=== PATIENT | female | born 1970 | race Caucasian/White ===

== ENCOUNTER 2016-06-02 12:11 | Emergency (ER) | payer MEDICAID ==
[~2016-06-02] VITALS: Ht 170.1 cm; Wt 63.5 kg
[~2016-06-02 12:11] MED LIST: AMOXICILLIN500 MG PO; ARICEPT5 MG PO; COMPAZINE10 MG PO; CYMBALTA60 MG PO; EXELON9.5 MG/24 TD; FIORICET 325 MG1 TAB PO; FLUVOXAMINE MA100 M2 PO; FLUVOXAMINE50 MG PO; Fioricet 325 MG1 TAB PO; Fiorinal,Butalb1 TAB PO; GEODON60 MG PO; IBUPROFEN600 MG PO; LAMICTAL100 MG PO; LAMICTAL25 MG PO; LORAZEPAM1 MG PO; Lopressor25 MG PO; NEURONTIN300 MG PO; NEURONTIN400 MG PO; QUETIAPINE FUMA25 MG PO; REMERON30 MG PO; SEROQUEL100 MG PO; TYLENOL325 M1 PO; ULTRAM50 MG PO; VALIUM10 MG; VICODIN 5/500 505 MG PO; VICODIN 500 MG-1 TAB PO; VITAMIN D50000 I3 PO; WELLBUTRIN75 MG PO; XANAX0.25 MG PO
[2016-06-02] MEDS ORDERED: VITAMIN D50000 UNIT PO (12:24)
[2016-06-02 12:27] VITALS: BP 139/88
== END 2016-06-02 13:47 | disposition home or self-care (01) ==
LOC: ED 12:11
DX: M79.662 Pain in left lower leg (principal); R03.0 Elevated blood-pressure reading, without diagnosis of hypertension; F17.200 Nicotine dependence, unspecified, uncomplicated; Z88.6 Allergy status to analgesic agent; Z79.899 Other long term (current) drug therapy

== ENCOUNTER 2016-08-25 11:50 | Emergency (ER) | payer MEDICAID ==
[~2016-08-25] VITALS: Ht 165.1 cm; Wt 54.4 kg
--- NOTE | ~2016-08-25 | EKG ---
[place], [place] ELECTROCARDIOGRAM REPORT NAME: BRET BENZ UNIT #: [id number] ROOM: DOCTOR: ELLIE MAE MD BIRTHDATE: [birth year] DOS: 08/25/2016 TIME: 12:51. Sinus rhythm, normal electrocardiogram. ELLIE MAE MD CM:EKGRPT:ELECTROCARDIOGRAM REPORT [id number] 1159 ELLIE MAE MD
[~2016-08-25 11:50] MED LIST changes: +VITAMIN D50000 UNIT PO
[2016-08-25 12:07] VITALS: BP 160/100
[2016-08-25 12:44] LABS: BASO # 0.1 10*3/uL (0.0-0.1); EOS # 0.3 10*3/uL (0.0-0.4); EOS % 3.1 % (1.0-4.0); HEMATOCRIT 42.2 % (37.0-47.0); HEMOGLOBIN 14.3 g/dl (12.0-16.0); LYMPH # 2.4 10*3/uL (1.3-4.4); LYMPH % 26.9 % (27.0-41.0); MEAN CELL VOLUME 94.6 fl (81.0-99.0); MEAN CORPUSCULAR HGB 32.1 pg (27.0-31.0); MEAN CORPUSCULAR HGB CONC 33.9 g/dl (33.0-37.0); MONO # 0.5 10*3/uL (0.1-1.0); MONO % 5.6 % (3.0-9.0); NEUT # 5.7 10*3/uL (2.3-7.9); NEUT % 63.1 % (47.0-73.0); PLATELET COUNT AUTOMATED 171 10*3/uL (130-400); RED BLOOD COUNT 4.46 10*6/uL (4.10-5.10); RED CELL DISTRI WIDTH 13.6 % (0-14.5); WHITE BLOOD COUNT 9.1 10*3/uL (4.8-10.8)
[2016-08-25 12:56] LABS: URINE AMPHETAMINES < 1000 (1000ng/ml); URINE BARBITURATES < 200 (200ng/ml); URINE COCAINE > 300 (300ng/ml)
[2016-08-25 13:05] LABS: ALBUMIN 3.6 gm/dl (3.1-4.5); BILIRUBIN, TOTAL 0.3 mg/dl (0.2-1.0); BUN 18 mg/dl (7-24); CARBON DIOXIDE 28 mmol/L (21-32); CHLORIDE 105 mmol/L (98-107); EST GLOM FILT AFRICAN AMERICAN > 60 ml/min; GLUCOSE 91 mg/dL (65-99); POTASSIUM 4.2 mmol/L (3.5-5.1); SGOT/AST 22 IU/L (3-35); SGPT/ALT 20 U/L (12-78); SODIUM 141 mmol/L (136-145); TOTAL PROTEIN 7.4 gm/dL (6.4-8.2)
[2016-08-25 13:08] LABS: ALKALINE PHOSPHATASE 68 U/L (45-117); B-hCG (QUALITATIVE) BORDERLINE (NEGATIVE); TROPONIN I < 0.015 ng/ml (<0.045)
[2016-08-26 04:54] LABS: BILIRUBIN NEGATIVE (NEGATIVE); BLOOD NEGATIVE (NEGATIVE); CLARITY SL CLOUDY (CLEAR); COLOR YELLOW (YELLOW); GLUCOSE NEGATIVE (NEGATIVE); KETONE NEGATIVE (NEGATIVE); LEUKO ESTERASE NEGATIVE (NEGATIVE); NITRITE NEGATIVE (NEGATIVE); PH 6.5 (5.0-9.0); PROTEIN NEGATIVE (NEGATIVE); UROBILINOGEN 0.2 E.U./dl (0.2-1.0)
[2016-08-26 05:03] LABS: BACTERIA 2+; CALCIUM OXALATE CRYSTALS 1+; URINE REFLEX COMMENT YES (NO)
== END 2016-08-25 16:22 | disposition home or self-care (01) ==
LOC: ED 11:50
PROVIDERS: Family Medicine Adult Medicine
DX: F32.2 Major depressive disorder, single episode, severe without psychotic features (principal); F17.200 Nicotine dependence, unspecified, uncomplicated; Z88.6 Allergy status to analgesic agent; Z79.899 Other long term (current) drug therapy

== ENCOUNTER 2017-01-11 13:26 | Emergency (ER) | payer MEDICAID ==
[~2017-01-11] VITALS: Ht 172.7 cm; Wt 65.8 kg
[2017-01-11 13:31] VITALS: BP 152/100
[2017-01-11 13:55] LABS: BILIRUBIN NEGATIVE (NEGATIVE); BLOOD TRACE-INTACT (NEGATIVE); CLARITY SL CLOUDY (CLEAR); COLOR YELLOW (YELLOW); GLUCOSE NEGATIVE (NEGATIVE); KETONE NEGATIVE (NEGATIVE); LEUKO ESTERASE NEGATIVE (NEGATIVE); NITRITE NEGATIVE (NEGATIVE); PROTEIN TRACE (NEGATIVE); SPECIFIC GRAVITY >= 1.030 (1.005-1.030); UROBILINOGEN 0.2 E.U./dl (0.2-1.0)
[2017-01-11 14:04] LABS: BACTERIA 2+; RBC 0-2 rbc/hpf (0-2); URINE REFLEX COMMENT YES (NO)
[2017-01-11 14:41] LABS: BASO # 0.1 10*3/uL (0.0-0.1); BASO % 0.9 % (0.0-1.0); EOS # 0.2 10*3/uL (0.0-0.4); HEMATOCRIT 47.4 % (37.0-47.0); HEMOGLOBIN 15.9 g/dl (12.0-16.0); LYMPH # 2.4 10*3/uL (1.3-4.4); LYMPH % 23.6 % (27.0-41.0); MEAN CELL VOLUME 96.7 fl (81.0-99.0); MEAN CORPUSCULAR HGB 32.4 pg (27.0-31.0); MEAN CORPUSCULAR HGB CONC 33.5 g/dl (33.0-37.0); MEAN PLATELET VOLUME 11.1 fl (9.6-12.3); MONO # 0.7 10*3/uL (0.1-1.0); NEUT # 6.7 10*3/uL (2.3-7.9); NEUT % 66.2 % (47.0-73.0); PLATELET COUNT AUTOMATED 227 10*3/uL (130-400); RED CELL DISTRI WIDTH 13.1 % (0-14.5); WHITE BLOOD COUNT 10.1 10*3/uL (4.8-10.8)
[2017-01-11 14:56] LABS: ALBUMIN 3.8 gm/dl (3.1-4.5); ALKALINE PHOSPHATASE 72 U/L (45-117); BILIRUBIN, TOTAL 0.5 mg/dl (0.2-1.0); BUN 19 mg/dl (7-24); C-REACTIVE PROTEIN 0.45 MG/DL (0-0.3); CARBON DIOXIDE 21 mmol/L (21-32); CHLORIDE 105 mmol/L (98-107); EST GLOM FILT AFRICAN AMERICAN > 60 ml/min; GLUCOSE 122 mg/dL (65-99); MAGNESIUM 1.9 mg/dL (1.5-2.1); SGOT/AST 26 IU/L (3-35); SGPT/ALT 18 U/L (12-78); SODIUM 135 mmol/L (136-145); TOTAL PROTEIN 8.3 gm/dL (6.4-8.2)
[2017-01-11] MEDS ORDERED: PYRIDIUM200 M1 PO (19:34)
[2017-01-11] MEDS ORDERED: MACROBID100 M1 PO (19:34)
== END 2017-01-11 21:37 | disposition home or self-care (01) ==
LOC: ED 13:26
PROVIDERS: Emergency Medicine
DX: N39.0 Urinary tract infection, site not specified (principal); R31.9 Hematuria, unspecified; F17.200 Nicotine dependence, unspecified, uncomplicated; Z98.890 Other specified postprocedural states; Z79.899 Other long term (current) drug therapy; Z88.6 Allergy status to analgesic agent

== ENCOUNTER → 2017-01-12 | Emergency (ER) | payer MEDICAID ==
[~2017-01-12] VITALS: Wt 67.1 kg
[~2017-01-12] MED LIST changes: +MACROBID100 M1 PO; +PYRIDIUM200 M1 PO
[2017-01-12 11:27] VITALS: BP 142/80
== END ==
LOC: ED 11:11
DX: N39.0 Urinary tract infection, site not specified (principal); F32.9 Major depressive disorder, single episode, unspecified; F17.200 Nicotine dependence, unspecified, uncomplicated; Z98.890 Other specified postprocedural states; Z79.899 Other long term (current) drug therapy; Z88.6 Allergy status to analgesic agent

== ENCOUNTER 2017-01-21 12:49 | Inpatient (IN) | payer MEDICAID ==
[~2017-01-21] VITALS: Ht 170.1 cm; Wt 67.1 kg
--- NOTE | ~2017-01-21 | CON ---
[place], [place] REPORT OF CONSULTATION NAME: BRET BENZ UNIT #: [id number] ROOM: 520 DOCTOR: SONAL NJ MD BIRTHDATE: [birth year] DOS: 01/23/2017 PSYCHIATRIC CONSULTATION CHIEF COMPLAINT: "I'm just so depressed, I can't go on like this." HISTORY OF PRESENT ILLNESS: This is a 46-year-old white female with a lengthy history of bipolar type 1, who has been off of her psychiatric medicines for over a year. She initially presented to [facility] with multiple physical complaints that included urinary frequency, dysuria, chest pain and black tarry stools. She also endorses an 8 pound weight loss that is unintentional over the last 3 weeks. From a psychiatric standpoint, the patient reports that she has been off of her psych meds for sometime and has been battling depression as well as mood swings for the last several months. She endorses poor sleep with difficulty falling asleep, sleep continuity disturbance, director of business development awakening, anergia, anhedonia, hopeless, helpless feelings, crying spells, and inability to cope. The mood swings are persistent as well and she finds herself being increasingly irritable and short fused with people. She denies suicidal thoughts, homicidal thoughts or any self-injurious thoughts. PAST MEDICAL HISTORY: Significant for a long history of bipolar disorder, also history of GERD and vitamin D deficiency. MENTAL STATUS EXAMINATION: This morning, the patient is alert and oriented to person, place and time. Mood does seem to be very down and depressed. Affect is flat and blunted with a constricted range. While endorsing mood lability, I saw none. There is no hypomania or cheri noted at this point. There are no auditory or visual hallucinations. No delusions. No paranoia. Short, intermediate and long-term memory were fully intact. DIAGNOSIS: Bipolar type 1, depressed type. PLAN: I will go ahead and start her on Latuda 40 mg at bedtime and increase this as tolerated and as needed. I will avoid starting her on an antidepressant at this point. Utilizing rather a mood stabilizer, which should be strong enough to bring her out of the depression, while also preventing her from cycling into cheri. Would suggest she follow up at [facility] for both counseling and medication management services. [place], [place] REPORT OF CONSULTATION NAME: BRET BENZ Kimmy UNIT #: [id number] ROOM: 520 DOCTOR: SONAL NJ MD BIRTHDATE: [birth year] SONAL NJ MD CM:CONSTR:REPORT OF CONSULTATION 0908 01/23/17 1054 interface
[2017-01-21 12:52] VITALS: BP 112/91
[2017-01-21 13:25] LABS: BILIRUBIN 1+ (NEGATIVE); BLOOD 1+ (NEGATIVE); CLARITY CLOUDY (CLEAR); COLOR YELLOW (YELLOW); GLUCOSE NEGATIVE (NEGATIVE); KETONE TRACE (NEGATIVE); NITRITE NEGATIVE (NEGATIVE); SPECIFIC GRAVITY >= 1.030 (1.005-1.030); UROBILINOGEN 0.2 E.U./dl (0.2-1.0)
[2017-01-21 13:40] LABS: LEUKO ESTERASE 2+ (NEGATIVE)
[2017-01-21 13:42] LABS: BACTERIA 2+; EPITHELIAL CELLS 30-40
[2017-01-21 14:26] LABS: BASO # 0.1 10*3/uL (0.0-0.1); BASO % 0.8 % (0.0-1.0); EOS # 0.2 10*3/uL (0.0-0.4); EOS % 1.7 % (1.0-4.0); HEMOGLOBIN 15.4 g/dl (12.0-16.0); LYMPH # 2.3 10*3/uL (1.3-4.4); LYMPH % 23.4 % (27.0-41.0); MEAN CELL VOLUME 97.3 fl (81.0-99.0); MEAN CORPUSCULAR HGB 32.6 pg (27.0-31.0); MEAN CORPUSCULAR HGB CONC 33.5 g/dl (33.0-37.0); MEAN PLATELET VOLUME 11.9 fl (9.6-12.3); MONO # 0.5 10*3/uL (0.1-1.0); MONO % 5.6 % (3.0-9.0); NEUT # 6.6 10*3/uL (2.3-7.9); NEUT % 68.2 % (47.0-73.0); PLATELET COUNT AUTOMATED 195 10*3/uL (130-400); RED BLOOD COUNT 4.73 10*6/uL (4.10-5.10); RED CELL DISTRI WIDTH 12.6 % (0-14.5); WHITE BLOOD COUNT 9.7 10*3/uL (4.8-10.8)
[2017-01-21 14:42] LABS: ALBUMIN 3.7 gm/dl (3.1-4.5); ALKALINE PHOSPHATASE 66 U/L (45-117); BUN 19 mg/dl (7-24); CHLORIDE 106 mmol/L (98-107); CREATININE 0.93 mg/dL (0.55-1.02); POTASSIUM 4.3 mmol/L (3.5-5.1); SGOT/AST 14 IU/L (3-35); SGPT/ALT 15 U/L (12-78); SODIUM 139 mmol/L (136-145); TOTAL PROTEIN 7.5 gm/dL (6.4-8.2)
--- NOTE | 2017-01-21 15:09 | NUR ---
CALLED [facility] AND SPOKE TO PHARMACIST LORRAINE. HE STATES PT HAD ALL SCRIPTS TRANSFERRED OUT TO "[facility]" IN 2016. I CALLED AND THAT PHARMACY IS CLOSED AT THIS TIME. DR UMESH DOUGLAS NOTIFIED. NO NEW ORDERS
--- NOTE | 2017-01-21 15:22 | NUR ---
IV NOT PATENT AT THIS TIME, REMOVED. MICHELLE BROWN NOTIFIED. ANTIBIOTIC HAS BEEN INFUSED.
--- NOTE | 2017-01-21 16:01 | NUR ---
A 46, admitted to 5E, under the services of GEETA Castellano DO with a diagnosis of UTI, FAILED OUT PATIENT. Chief complaint is URINE FREQ. Patient arrived via ambulatory from ER. Monitor applied. Initial assessment completed. Vital signs taken and recorded. GEETA CASTELLANO DO notified of admission to the unit. Orders received. See assessment for past medical history, medications and allergies. Patient and/or family oriented to unit. [facility] visitation policy reviewed. Clothing/patient valuable form completed. STEPHANIE HALEY
--- NOTE | 2017-01-21 16:05 | NUR ---
PATIENT DENIES TAKING ANY HOME MEDICATIONS AT THIS TIME. STATES SHE DONT HAVE A DOCTOR SO SHE ISNT CURRENTLY TAKING AND MEDS OTHER THAN THE MEDICATIONS GIVEN TO HER RECENTLY FROM ED FOR UTI.
[2017-01-21 16:19] VITALS: BP 121/86
--- NOTE | 2017-01-21 20:00 | NUR ---
ALERT ORIENTED X3. NOTED PT. SPEAKING TO SELF IN BATHROOM. PT. UP VOIDING ABOUT EVERY 10 MINUTES BUT DENIES PAIN AT THIS TIME. LUNG SOUNDS CLEAR. ABD SOFT + BOWEL SOUNDS. NO EDEMA.
[2017-01-21 20:03] VITALS: BP 108/74
--- NOTE | 2017-01-21 21:15 | NUR ---
CALLED DR. DAMON AND NOTIFIED HIM PT. WANTING NICOTINE PATCH AND ACTING VERY ANXIOUS ABOUT NEEDING A CIGARETTE. ORDERS RECEIVED FOR JOSE PATCH AND INHALER AND ALSO ATIVAN.
--- NOTE | 2017-01-21 21:51 | NUR ---
NICOTINE PATCH APPLIED AND INSTRUCTED PT. HOW TO USE INHALER AND ATIVAN GIVEN PER ORDER FOR ANXIETY. SEE MAR.
--- NOTE | 2017-01-21 22:00 | NUR ---
IV SITE EDEMATOUS. IV BOLUS FLUID STOPPED.IV discontinued. Site symptomatic. Pressure applied. Sterile dressing applied. IV started left wrist with #24 angiocath after 1ST attempts. The IV site was prepped with Chloraprep. Heparin lock attached. IV solution 0.9NS BOLUS TO COMPLETE infusing at 50 cc/hr. WATCHING IV SITE. Sterile dressing applied. Patient tolerated precedure well. Procedure performed according to [facility] policy & procedure. KLAUS CLEANING LAURA J
[2017-01-22] VITALS: BP 103/82
--- NOTE | 2017-01-22 00:43 | NUR ---
PATIENT SITTING UP IN BED WATCHING TV. NO VOICED COMPLAINTS AT THIS TIME. FLUIDS MAINTAINED. CALL LIGHT IN REACH.
--- NOTE | 2017-01-22 02:09 | NUR ---
PATIENT SLEEPING. NO SXS OF DISTRESS. CALL LIGHT IN REACH. FLUIDS MAINTAINED PER ORDER.
--- NOTE | 2017-01-22 05:52 | NUR ---
MEDICATED WITH PRN NORCO ORDERED FOR C/O FOOT PAIN AT A 10.
--- NOTE | 2017-01-22 06:14 | NUR ---
PATIENT STATES SHE DID NOT SLEEP WELL THROUGH THE NIGHT. HER ONLY COMPLAINTS ARE FEET PAIN WHICH SHE IS MEDICATED FOR. CURRENTLY RESTING IN BED. NO SXS OF DISTRESS. CALL LIGHT IN REACH. WILL MONITOR.
[2017-01-22 06:41] LABS: BASO # 0.1 10*3/uL (0.0-0.1); BASO % 0.7 % (0.0-1.0); EOS # 0.4 10*3/uL (0.0-0.4); EOS % 3.7 % (1.0-4.0); HEMATOCRIT 44.7 % (37.0-47.0); LYMPH # 3.7 10*3/uL (1.3-4.4); MEAN CELL VOLUME 98.9 fl (81.0-99.0); MEAN CORPUSCULAR HGB 33.2 pg (27.0-31.0); MEAN CORPUSCULAR HGB CONC 33.6 g/dl (33.0-37.0); MEAN PLATELET VOLUME 11.9 fl (9.6-12.3); MONO # 0.7 10*3/uL (0.1-1.0); NEUT # 6.8 10*3/uL (2.3-7.9); NEUT % 58.3 % (47.0-73.0); PLATELET COUNT AUTOMATED 170 10*3/uL (130-400); RED BLOOD COUNT 4.52 10*6/uL (4.10-5.10); RED CELL DISTRI WIDTH 12.7 % (0-14.5); WHITE BLOOD COUNT 11.8 10*3/uL (4.8-10.8)
[2017-01-22 06:45] LABS: ACT PARTIAL THROMBO TIME 26.7 SECONDS (20.8-31.5)
[2017-01-22 06:54] LABS: ALBUMIN 3.4 gm/dl (3.1-4.5); ALKALINE PHOSPHATASE 79 U/L (45-117); BUN 14 mg/dl (7-24); CHLORIDE 109 mmol/L (98-107); CHOLESTEROL 171 mg/dL (<200); CREATININE 0.71 mg/dL (0.55-1.02); FREE T4 1.16 ng/dl (0.76-1.46); HDL CHOLESTEROL 86 mg/dl (40-60); LDL CHOLESTEROL 71 mg/dL (9-159); PHOSPHOROUS 3.7 mg/dL (2.5-4.9); SGOT/AST 14 IU/L (3-35); SGPT/ALT 13 U/L (12-78); SODIUM 141 mmol/L (136-145); TRIGLYCERIDES 68 mg/dl (<150); VLDL CHOLESTEROL 14 mg/dL (6-40)
[2017-01-22 07:49] LABS: VITAMIN D, 25-HYDROXY 71.1 ng/mL (30-100)
[2017-01-22 08:00] VITALS: BP 122/88
--- NOTE | 2017-01-22 12:44 | NUR ---
SPOKE WITH DR. NJ REGARDING CONSULT. STATES HE WILL SEE HER IN THE MORNING
[2017-01-22 16:34] VITALS: BP 138/90
--- NOTE | 2017-01-22 19:58 | NUR ---
GISELLE GIVEN PER ORDER FOR PAIN IN LEFT FOOT. PT. NOT ABLE TO RATE THIS PAIN JUST SAYS "MY FOOT HURTS, IT'S NOT GOOD". SEE MAR.
[2017-01-22 20:00] VITALS: BP 132/100
[2017-01-22 20:30] VITALS: BP 134/90
--- NOTE | 2017-01-22 20:55 | NUR ---
PER PT. FOOT PAIN BETTER. NORCO EFFECTIVE AT THIS TIME.
--- NOTE | 2017-01-22 22:00 | NUR ---
SLEEPING AT PRESENT. RESP.EASY AND REG.
[2017-01-23] VITALS: BP 109/78
--- NOTE | 2017-01-23 03:40 | NUR ---
SLEEPING. NO ACUTE DISTRESS NOTED.
--- NOTE | 2017-01-23 05:42 | NUR ---
NORCO GIVEN PER ORDER FOR LEFT FOOT PAIN PT SAID "HURTS PRETTY BAD".
[2017-01-23 06:58] LABS: BUN 15 mg/dl (7-24); CHLORIDE 104 mmol/L (98-107); POTASSIUM 4.1 mmol/L (3.5-5.1); SODIUM 138 mmol/L (136-145)
[2017-01-23 08:00] VITALS: BP 148/80
--- NOTE | 2017-01-23 08:00 | NUR ---
Balloon Tester in to talk to patient. Patient states lives at [facility] IN AN APARTMENT with A FREIND. There are 15 steps in the home. Physician: DR BALL Pharmacy: [facility] Home health services: NONE Patient's level of ADLs: INDEPENDENT Patient has working utilities: YES DME: NONE Follow-up physician's appointment after d/c: WILL BE MADE PRIOR TO DC Does patient want to access PORTAL?: Discharge plan HOME. IRIS BERUMEN
[2017-01-23 12:00] VITALS: BP 128/86
[2017-01-23 16:00] VITALS: BP 122/83
[2017-01-23 20:00] VITALS: BP 122/60
[2017-01-24] VITALS: BP 95/77
--- NOTE | 2017-01-24 01:09 | NUR ---
PATIENT MEDICATED WITH NORCO FOR COMPLAINTS OF FOOT PAIN AT 2026 AND ATIVAN FOR COMPLAINTS OF ANXIETY AT 2236 WITH EFFECTIVE RESULTS NOTED FOR BOTH. RESTING IN BED WITH EYES CLOSED AT THIS TIME. NO SIGNS OR SYMPTOMS OF DISTRESS NOTED. WILL CONTINUE TO MONITOR. CALL LIGHT IN REACH.
--- NOTE | 2017-01-24 04:15 | NUR ---
24 HOUR CHART CHECK DONE.
[2017-01-24 06:42] LABS: BASO # 0.1 10*3/uL (0.0-0.1); BASO % 0.7 % (0.0-1.0); EOS # 0.4 10*3/uL (0.0-0.4); HEMATOCRIT 42.9 % (37.0-47.0); HEMOGLOBIN 14.1 g/dl (12.0-16.0); LYMPH # 3.2 10*3/uL (1.3-4.4); LYMPH % 30.3 % (27.0-41.0); MEAN CELL VOLUME 97.1 fl (81.0-99.0); MEAN CORPUSCULAR HGB 31.9 pg (27.0-31.0); MEAN CORPUSCULAR HGB CONC 32.9 g/dl (33.0-37.0); MEAN PLATELET VOLUME 11.7 fl (9.6-12.3); MONO # 0.7 10*3/uL (0.1-1.0); MONO % 6.3 % (3.0-9.0); NEUT # 6.2 10*3/uL (2.3-7.9); NEUT % 58.5 % (47.0-73.0); PLATELET COUNT AUTOMATED 159 10*3/uL (130-400); RED BLOOD COUNT 4.42 10*6/uL (4.10-5.10); RED CELL DISTRI WIDTH 12.7 % (0-14.5); WHITE BLOOD COUNT 10.6 10*3/uL (4.8-10.8)
[2017-01-24 06:50] LABS: BUN 17 mg/dl (7-24); CHLORIDE 104 mmol/L (98-107); CREATININE 0.78 mg/dL (0.55-1.02); POTASSIUM 4.1 mmol/L (3.5-5.1); SODIUM 137 mmol/L (136-145)
[2017-01-24 08:03] VITALS: BP 116/86
--- NOTE | 2017-01-24 10:00 | NUR ---
RESTING DAUGHTER AT THE BEDSIDE.
[2017-01-24 12:00] VITALS: BP 129/75
--- NOTE | 2017-01-24 12:01 | NUR ---
community outreach worker met with Dariana and daughter, Corina. Dariana very weepy. Daughter did the majority of the talking. Stated her mother needs assistance with housing. Per daughter, she had been living in an assisted living facility but can not return due to her behavior-wandering at night and hanging out with the wrong people. Daughter is looking into applying for housing at [facility] but while this process in being completed would like her mother placed in a retirement. She requested a referral to [facility]. Dariana has a history of bipolar disease-she did not speak up during this conversation. Referrral was made to [facility]. Level of Care is needed. Will continue to esther.
--- NOTE | 2017-01-24 12:10 | NUR ---
After much research, I was able to find out the patient had resided at the [facility] facility in [place] for quite some time. The flask fitter stated she had a lot of behaviors that they couldn't get under control and at times, scared the other residents. She stated the patient was anxious to go out on her own and live in her own apartment. Patient was discharged from [facility] on 12/27/16. She also stated the patient came to visit [facility] this past monday night 01/20/17 and displayed good behaviors as well as played cards with some of the residents. She then took her home to an apartment in [place] between the [employer] department and the [employer] on the 2nd level. She doesn't know if that was this patients apartment or if she was staying with someone else.
--- NOTE | 2017-01-24 13:29 | NUR ---
PHYSICAL THERAPY PAtient eating lunch at this time. Thank you for this referral. Jimena Galeano,PT
--- NOTE | 2017-01-24 13:47 | NUR ---
Made referral [facility] as a second choice.
--- NOTE | 2017-01-24 14:16 | NUR ---
PHYSICAL THERAPY PAtient evaluated on 5, full evaluation to follow. D/c PT after evaluation. PAtient refuses to utilize cane or walker to assist with decreasing weight bearing on (b)LE to aide in balance and decreasing pain. PAtient is (I) all mobility throughout room. PAtient is moderate complexity via evaluation, tests and chart review: [id number]. Thank you for this referral. Jimena Jackman,.PT
--- NOTE | 2017-01-24 14:34 | NUR ---
NICODERM PATCH REMOVED SO PATIENT CAN USE NICOTROL INHALER.
--- NOTE | 2017-01-24 14:52 | NUR ---
[facility] not able to accept patient. Still waiting to hear back from [facility]. Left message for Constantin [facility] [place]'s admission coordinator for the assisted to call this social studies department chair.
--- NOTE | 2017-01-24 14:57 | NUR ---
Per [facility], patient does not meet criteria for intermediate placement.
--- NOTE | 2017-01-24 15:20 | NUR ---
Per [facility]-they no longer give out appplications- anyone interested in applying will have to do it online. Face to face interview and background check as well as a financial assessment will have to be done before a resident can be accepted. All information was given to daughter.
[2017-01-24 16:00] VITALS: BP 108/66
--- NOTE | 2017-01-24 17:59 | NUR ---
RESTING QUIETLY AT PRESENT. NO DISTRESS.
[2017-01-24 20:00] VITALS: BP 105/76
--- NOTE | 2017-01-24 20:00 | NUR ---
DAUGHTER VISITING. NO ACUTE DISTRESS NOTED. NEW NICOTROL INHALER CARTRIDGE GIVEN.
--- NOTE | 2017-01-24 20:30 | NUR ---
went to check on patient she was up in the shower, crying. dried right arm off and covered picc line to protect. helped pt. with completing shower and drying hair. Bed linens changed. reassurrance given and pt. calming. Latuda given at this time.
[2017-01-25] VITALS: BP 99/52
--- NOTE | 2017-01-25 04:07 | NUR ---
SLEEPING. RESP. EASY AND REG. NO ACUTE DISTRESS NOTED.
[2017-01-25 08:00] VITALS: BP 116/76
--- NOTE | 2017-01-25 08:00 | NUR ---
RESTING IN BED.
--- NOTE | 2017-01-25 08:19 | NUR ---
Contacted daughter, Corina, informed her that her mother was not a candidate for alf placement. Explained that a list of homeless shelters would be given to her mother. She became very upset and stated it was the hospital's responsibility to find her a place-that she had things to do today and did not have time to call homeless shelters. She then hung up on this social security specialist. survey worker contacted [facility]-learned that Dariana is an active client-corncob pipe supervisor gave this social security specialist the voice mail of patient's psychologist, Norma Neri-corncob pipe supervisor stated that Norma could make referrals to housing programs. Message left on Norma's voice mail to call this social security specialist.
--- NOTE | 2017-01-25 08:29 | NUR ---
Message left on the voice mail of "Constantin" half-way coordinator for [facility] [place]. Will continue to follow.
--- NOTE | 2017-01-25 09:00 | NUR ---
PATIENT TEARFUL AT TIMES. YELLING OUT INSTEAD OF PUTTING ON THE CALL LIGHT.
--- NOTE | 2017-01-25 09:31 | NUR ---
die storage worker met with patient-she was walking in her room; getting dressed. She acknowledged that she is being discharged. die storage worker gave her a list of shelters. Strongly recommended that she call [facility] as she is actively involved with that agency. She acknowledges seeing JUJU Gee, but does not recall meeting with a pschologist, Norma Neri. She is unsure of what she will do-she will be calling her daughter. Will continue to follow.
[2017-01-25 12:00] VITALS: BP 115/89
--- NOTE | 2017-01-25 13:01 | NUR ---
Dr. Neri called this social worker masters back-stated she only saw patient one time in her office. She stated she has nothing to do with housing. She recommended that this social worker masters contact [facility]. sample shoe inspector and reworker spoke with Lia Fuentes of the [facility]-information regarding patient was given. She indicated that she would have to speak with Dr. Neri to learn if patient meets the criteria for admission to [facility]. Stated she would call this social worker masters back.
--- NOTE | 2017-01-25 15:00 | NUR ---
SPOKE WITH DR. Amol WARD TO LET HIM KNOW THAT NO GROUP HOME ARRANGEMENTS HAVE BEEN ABLE TO BE ARRANGED AT THIS TIME.
--- NOTE | 2017-01-25 15:09 | NUR ---
heard back from Lia of the [facility]-she indicated that patient was not appropriate for placment at the [facility]. She gave this social worker school the telephone number of [facility] [place], or [phone]. bull gang worker was given the number of patient's other daughter, [phone]-she indicated that she is aware of her mother's situation but can not physically assist-she stated she has has boyfriend and three young children at home and there is no room for her mother. bull gang worker informed her of all the shelters-daughter was not receptive -stated her mother has to stay in the area-per Amira patient recently moved into an apt with a gentleman and that is less than a month time was kicked out. She stated that she will be calling the police to find out about her mother's possessions. stated all of her mother's possessions were
--- NOTE | 2017-01-25 15:30 | NUR ---
SPOKE WITH JAZLYN PRAJAPATI NURSING NEWSPAPER ILLUSTRATOR REGARDING PATIENT'S DISCHARGE ARRANGEMENTS. SPOKE WITH SOCIAL SERVICE REGARDING DISCHARGE. SEE SOCIAL SERVICE NOTES. GAVE YONI TOVAR DAUGHTER JAZMIN MONET.
[2017-01-25 16:00] VITALS: BP 128/96
--- NOTE | 2017-01-25 17:00 | NUR ---
SPOKE WITH PATIENT TO LET HER KNOW THAT SHE WOULD NOT BE DISCHARGED TODAY.
--- NOTE | 2017-01-25 19:08 | NUR ---
CONTINUES TO BE TEARFUL AT TIMES WITH LOUD OUTBURSTS OF YELLING FROM TIME TO TIME.
[2017-01-25 20:00] VITALS: BP 126/83
--- NOTE | 2017-01-25 20:30 | NUR ---
Patient medicated with norco and ativan as per prn order for c/o foot pain and pain with urination. See emar. Reinforced use of call light.
[2017-01-26] VITALS: BP 114/68
--- NOTE | 2017-01-26 | NUR ---
PATIENT RESTING QUIETLY. NO FURTHER C/O VOICED.
[2017-01-26 08:00] VITALS: BP 128/89
--- NOTE | 2017-01-26 08:04 | NUR ---
CALLED INTO ROOM BY PA, STATED PT WAS SMOKING IN BATHROOM, ALSO PT HAD GOTTEN INTO SHOWER WITHOUT WRAPPING PICC LINE. SPOKE WITH PT REGARDING WHERE THE CIGARETTE CAME FROM THAT IS IN TOILET, PT STATED SHE DIDN'T KNOW IT WAS IN THERE. EDUCATED PT ON THAT THIS IS A HOSPITAL AND THERE IS TO BE ABSOLUTELY NO SMOKING IN THE HOSPITAL AND PT CAN'T LEAVE FLOOR TO SMOKE EITHER. PT WOULD NOT MAKE EYE CONTACT WITH ME AND JUST CONTINUED TO STARE OUT WINDOW. ASSESSED PICC LINE, PICC LINE AND DRESSING INTACT. ALSO EDUCATED PT THAT WHEN SHE WANTS TO SHOWER, WE NEED TO BE NOTIFIED OF THIS TO WRAP LINE TO KEEP IT INTACT. SPOKE WITH DR Eladio WARD REGARDING THIS, STATED DR MILAN WOULD BE UP TO SPEAK WITH PT. NOTIFIED PASSENGER BRAKEMAN WELL.
--- NOTE | 2017-01-26 08:44 | NUR ---
DR MILAN IN TO SEE PT AT THIS TIME REGARDING PT SMOKING IN ROOM. UPDATED DR MILAN ON WHAT SUPERVISOR PRINT LINE HAD STATED, STATING THAT THERE ARE TWO SHELTERS IN [facility] THAT ARE WILLING TO ACCEPT PT, BUT THE DAUGHTER DOESN'T WANT THE PT TAKEN OUT OF THE AREA, BUT THERE ARE NO SHELTERS WILLING TO ACCEPT HER LOCALLY.
--- NOTE | 2017-01-26 09:05 | NUR ---
Message left on Amira johnston's voice mail to call this web content & social media manager.
--- NOTE | 2017-01-26 10:19 | NUR ---
Called daughter, Amira, again-she answered telephone. This psychosocial rehabilitation counselor informed her of her mother's discharge. Offered fpc placement again. She stated her mother is to return to the [facility] where she resided prior to admissiom.
[2017-01-26] MEDS ORDERED: LATU40TA PO (10:32)
--- NOTE | 2017-01-26 10:34 | NUR ---
Patient will be discharged. She will be returning to her apt via cab. Daughter, Amira, will meet her there at the apt. List of shelters given to patient. Informed the daughter of the shelters and the locations. Strongly recommended care home placement if daughter can not assist patient will housing.
--- NOTE | 2017-01-26 10:40 | NUR ---
SPOKE WITH DR MILAN REGARDING DISCHARGE, STATES THAT THE DAUGHTER WILL BE PICKING HER UP, TRANSPORTING HER TO HER APT TO GET HER BELONGINS AND THEN TRASNPORT HER TO SNF. DISCHARGE ORDER STATES TO CALL [facility] AND CAB WILL TRASNPORT HER TO APT IN [facility]. SPOKE WITH DR WARD REGARDING CONFLICT, HE STATES CAB WILL BE PICKING PT UP AND TRASNPORTING TO APT. SPOKE WITH FRONT DESK CLERK REGARDING THIS. SHE STATES CAB WILL BE PICKING PT UP AT 1130 TO TAKE TO APT AND DAUGHTER WILL BE MEETING HER THERE TO SEE IF SHE IS ABLE TO STAY THERE, IF NOT INFORMATION FOR ACCEPTING SHELTERS IN [place] WERE PROVIDED.
--- NOTE | 2017-01-26 10:50 | NUR ---
This social science teacher contacted [facility]-patient will be picked up in front of hospital at 11:30am and will be taken to the apt near the [employer]. Daughter, Amira informed.
--- NOTE | 2017-01-26 11:26 | NUR ---
PICC LINE IN RIGHT ARM DISCONTINUED. PULLED AT 40CM YOSEPH, NO DIFFICULTY. SITE ASYMPTOMATIC. PRESSURE APPLIED FOR 5 MINS. STERILE DRESSING APPLIED.
--- NOTE | 2017-01-26 11:28 | NUR ---
Discharge instructions reviewed with patient/family. Patient receptive and verbalizes understanding. Follow-up care arranged. Written instructions given to patient/family. Pt transported via wheelchair to lobby to meet [employer].
== END 2017-01-26 11:25 | disposition home or self-care (01) | DRG 872 ==
LOC: ED 12:49 → 5E 14:52 → EDHOLD 14:52 → 5E 15:07
PROVIDERS: Family Medicine; Internal Medicine; Nurse Practitioner Family; ADMIT Internal Medicine
PROC: 02HV33Z Insertion of Infusion Device into Superior Vena Cava, Percutaneous Approach (ICD-10-PCS; principal; 2017-01-23)
DX: A41.9 Sepsis, unspecified organism (principal); R82.2 Biliuria; N39.0 Urinary tract infection, site not specified; F31.60 Bipolar disorder, current episode mixed, unspecified; E83.51 Hypocalcemia; R31.9 Hematuria, unspecified; F17.210 Nicotine dependence, cigarettes, uncomplicated; K21.9 Gastro-esophageal reflux disease without esophagitis; Z59.0 Homelessness; Z88.6 Allergy status to analgesic agent; Z84.89 Family history of other specified conditions; Z81.1 Family history of alcohol abuse and dependence; Z82.49 Family history of ischemic heart disease and other diseases of the circulatory system

== ENCOUNTER 2017-02-19 15:59 | Emergency (ER) | payer MEDICAID ==
[~2017-02-19] VITALS: Ht 172.7 cm; Wt 67.1 kg
[~2017-02-19 15:59] MED LIST changes: +LATU40TA PO
[2017-02-19 16:15] VITALS: BP 131/89
[2017-02-19 17:22] LABS: BILIRUBIN NEGATIVE (NEGATIVE); BLOOD TRACE-INTACT (NEGATIVE); CLARITY SL CLOUDY (CLEAR); COLOR YELLOW (YELLOW); GLUCOSE NEGATIVE (NEGATIVE); KETONE NEGATIVE (NEGATIVE); LEUKO ESTERASE NEGATIVE (NEGATIVE); NITRITE NEGATIVE (NEGATIVE); SPECIFIC GRAVITY >= 1.030 (1.005-1.030); UROBILINOGEN 0.2 E.U./dl (0.2-1.0)
[2017-02-19 17:37] LABS: BACTERIA 1+; CALCIUM OXALATE CRYSTALS 2+; EPITHELIAL CELLS TNTC; RBC 0-2 rbc/hpf (0-2); WBC 0-2 wbc/hpf (0-5)
[2017-02-19] MEDS ORDERED: PYRIDIUM200 M1 PO ×2 (18:17→19:18)
[2017-02-19] MEDS ORDERED: AMINOPHYLLIN200 MG PO ×2 (18:17→19:18)
== END 2017-02-19 18:23 | disposition home or self-care (01) ==
LOC: ED 15:59
PROVIDERS: Physician Assistant
DX: N39.0 Urinary tract infection, site not specified (principal); R31.9 Hematuria, unspecified; F17.200 Nicotine dependence, unspecified, uncomplicated; Z88.6 Allergy status to analgesic agent

== ENCOUNTER 2017-05-19 17:16 | Inpatient (IN) | payer MEDICAID ==
[~2017-05-19] VITALS: Ht 172.7 cm; Wt 64.5 kg
--- NOTE | ~2017-05-19 | EKG ---
[place], [place] ELECTROCARDIOGRAM REPORT NAME: BRET BENZ UNIT #: [id number] ROOM: [facility] DOCTOR: PABLITO CATHERINE,FUENTES BIRTHDATE: [birth year] DOS: 05/20/2017 TIME: 0016 hours. DIAGNOSES: 1. Sinus rhythm. 2. Low voltage complexes. FUENTES KENNEY MD CM:EKGRPT:ELECTROCARDIOGRAM REPORT 1028 1051 FUENTES KENNEY MD
--- NOTE | ~2017-05-19 | EKG ---
[place], [place] ELECTROCARDIOGRAM REPORT NAME: BRET BENZ UNIT #: [id number] ROOM: [facility] DOCTOR: PABLITO CATHERINE,FUENTES BIRTHDATE: [birth year] DOS: 05/19/2017 TIME: 1713 hours. IMPRESSION: 1. Sinus tachycardia. 2. Frequent ventricular ectopy. 3. Left axis deviation. 4. Low voltage complexes in the precordial leads. FUENTES KENNEY MD CM:EKGRPT:ELECTROCARDIOGRAM REPORT 1029 1053 FUENTES KENNEY MD
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
--- NOTE | ~2017-05-19 | EKG ---
[place], [place] ELECTROCARDIOGRAM REPORT NAME: BRET BENZ UNIT #: [id number] ROOM: [facility] DOCTOR: PABLITO CATHERINE,FUENTES BIRTHDATE: [birth year] DOS: 05/19/2017 TIME: 2011 hours. IMPRESSION: 1. Sinus rhythm. 2. Ventricular ectopy. 3. Low voltage complexes. FUENTES KENNEY MD CM:EKGRPT:ELECTROCARDIOGRAM REPORT 1029 1052 FUENTES KENNEY MD
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
[2017-05-19 17:16] VITALS: BP 146/82
[~2017-05-19 17:16] MED LIST changes: +AMINOPHYLLIN200 MG PO
[2017-05-19 17:49] LABS: BASO # 0.1 10*3/uL (0.0-0.1); BASO % 0.9 % (0.0-1.0); EOS # 0.2 10*3/uL (0.0-0.4); EOS % 2.1 % (1.0-4.0); HEMATOCRIT 40.9 % (37.0-47.0); HEMOGLOBIN 13.9 g/dl (12.0-16.0); LYMPH # 2.6 10*3/uL (1.3-4.4); LYMPH % 30.2 % (27.0-41.0); MEAN CORPUSCULAR HGB 32.6 pg (27.0-31.0); MEAN PLATELET VOLUME 10.8 fl (9.6-12.3); MONO # 0.6 10*3/uL (0.1-1.0); MONO % 6.9 % (3.0-9.0); NEUT # 5.1 10*3/uL (2.3-7.9); NEUT % 59.7 % (47.0-73.0); PLATELET COUNT AUTOMATED 208 10*3/uL (130-400); RED BLOOD COUNT 4.26 10*6/uL (4.10-5.10); RED CELL DISTRI WIDTH 12.1 % (0-14.5); WHITE BLOOD COUNT 8.5 10*3/uL (4.8-10.8)
[2017-05-19 17:58] LABS: ACT PARTIAL THROMBO TIME 25.8 SECONDS (20.8-31.5)
[2017-05-19 18:06] LABS: ALBUMIN 3.7 gm/dl (3.1-4.5); ALKALINE PHOSPHATASE 71 U/L (45-117); BUN 16 mg/dl (7-24); CHLORIDE 102 mmol/L (98-107); CREATININE 0.84 mg/dL (0.55-1.02); POTASSIUM 3.9 mmol/L (3.5-5.1); SGOT/AST 19 IU/L (3-35); SGPT/ALT 26 U/L (12-78); SODIUM 137 mmol/L (136-145); TOTAL PROTEIN 6.9 gm/dL (6.4-8.2)
[2017-05-19 18:07] LABS: TROPONIN I < 0.015 ng/ml (<0.045)
[2017-05-19 18:36] LABS: BILIRUBIN NEGATIVE (NEGATIVE); BLOOD NEGATIVE (NEGATIVE); CLARITY CLEAR (CLEAR); COLOR YELLOW (YELLOW); GLUCOSE NEGATIVE (NEGATIVE); KETONE NEGATIVE (NEGATIVE); LEUKO ESTERASE TRACE (NEGATIVE); NITRITE NEGATIVE (NEGATIVE); SPECIFIC GRAVITY 1.015 (1.005-1.030); UROBILINOGEN 0.2 E.U./dl (0.2-1.0)
[2017-05-19 18:43] LABS: BACTERIA TRACE; EPITHELIAL CELLS 25-30
[2017-05-19 18:50] VITALS: BP 113/89
[2017-05-19 18:51] LABS: URINE AMPHETAMINES < 1000 (1000ng/ml); URINE BARBITURATES < 200 (200ng/ml); URINE BENZODIAZEPINES < 200 (200ng/ml); URINE CANNABINOIDS (THC) < 50 (50ng/ml); URINE COCAINE < 300 (300ng/ml); URINE OPIATES < 300 (300ng/ml)
[2017-05-19 18:56] LABS: URINE METHADONE < 300 (300ng/ml)
[2017-05-19 18:57] LABS: URINE PHENCYCLIDINE < 25 (25ng/ml)
[2017-05-19 19:35] VITALS: BP 114/78
[2017-05-19 20:00] VITALS: BP 140/85
[2017-05-19] MEDS ORDERED: TRAZODONE50 MG PO (20:24)
[2017-05-20] VITALS: BP 104/68
[2017-05-20 04:00] VITALS: BP 101/66
[2017-05-20 05:57] LABS: BASO # 0.1 10*3/uL (0.0-0.1); BASO % 0.8 % (0.0-1.0); EOS # 0.3 10*3/uL (0.0-0.4); HEMATOCRIT 43.3 % (37.0-47.0); HEMOGLOBIN 14.8 g/dl (12.0-16.0); LYMPH # 3.8 10*3/uL (1.3-4.4); LYMPH % 46.3 % (27.0-41.0); MEAN CELL VOLUME 96.9 fl (81.0-99.0); MEAN CORPUSCULAR HGB 33.1 pg (27.0-31.0); MEAN CORPUSCULAR HGB CONC 34.2 g/dl (33.0-37.0); MEAN PLATELET VOLUME 10.8 fl (9.6-12.3); MONO # 0.5 10*3/uL (0.1-1.0); MONO % 6.5 % (3.0-9.0); NEUT # 3.5 10*3/uL (2.3-7.9); NEUT % 42.3 % (47.0-73.0); PLATELET COUNT AUTOMATED 200 10*3/uL (130-400); RED BLOOD COUNT 4.47 10*6/uL (4.10-5.10); RED CELL DISTRI WIDTH 12.1 % (0-14.5); WHITE BLOOD COUNT 8.3 10*3/uL (4.8-10.8)
[2017-05-20 06:12] LABS: ALBUMIN 3.3 gm/dl (3.1-4.5); ALKALINE PHOSPHATASE 63 U/L (45-117); BUN 13 mg/dl (7-24); CHLORIDE 105 mmol/L (98-107); CHOLESTEROL 182 mg/dL (<200); CREATININE 0.75 mg/dL (0.55-1.02); HDL CHOLESTEROL 88 mg/dl (40-60); LDL CHOLESTEROL 76 mg/dL (9-159); PHOSPHOROUS 4.4 mg/dL (2.5-4.9); POTASSIUM 3.8 mmol/L (3.5-5.1); SGOT/AST 18 IU/L (3-35); SGPT/ALT 23 U/L (12-78); SODIUM 139 mmol/L (136-145); TOTAL PROTEIN 6.8 gm/dL (6.4-8.2); TRIGLYCERIDES 90 mg/dl (<150); VLDL CHOLESTEROL 18 mg/dL (6-40)
[2017-05-20 08:00] VITALS: BP 130/83
[2017-05-20 08:36] LABS: VITAMIN D, 25-HYDROXY 34.1 ng/mL (30-100)
[2017-05-20 12:00] VITALS: BP 146/86
[2017-05-20 16:00] VITALS: BP 153/78
[2017-05-20 20:00] VITALS: BP 147/84
[2017-05-21] VITALS: BP 116/81
[2017-05-21 04:00] VITALS: BP 118/74
[2017-05-21 08:00] VITALS: BP 113/75; BP 159/70
[2017-05-21 12:00] VITALS: BP 126/75
[2017-05-21 16:00] VITALS: BP 114/72
[2017-05-21 20:00] VITALS: BP 135/87
[2017-05-22] VITALS: BP 116/76
[2017-05-22 04:00] VITALS: BP 90/61
[2017-05-22 08:00] VITALS: BP 140/90
[2017-05-22 12:00] VITALS: BP 120/70
[2017-05-22 16:00] VITALS: BP 104/76
[2017-05-22 20:00] VITALS: BP 110/83
[2017-05-23] VITALS: BP 104/77
[2017-05-23 04:00] VITALS: BP 109/67
[2017-05-23 05:15] LABS: BASO # 0.1 10*3/uL (0.0-0.1); BASO % 0.9 % (0.0-1.0); EOS # 0.4 10*3/uL (0.0-0.4); EOS % 5.1 % (1.0-4.0); HEMATOCRIT 40.7 % (37.0-47.0); HEMOGLOBIN 13.9 g/dl (12.0-16.0); LYMPH # 2.9 10*3/uL (1.3-4.4); LYMPH % 36.9 % (27.0-41.0); MEAN CELL VOLUME 94.9 fl (81.0-99.0); MEAN CORPUSCULAR HGB 32.4 pg (27.0-31.0); MEAN CORPUSCULAR HGB CONC 34.2 g/dl (33.0-37.0); MEAN PLATELET VOLUME 10.7 fl (9.6-12.3); MONO # 0.7 10*3/uL (0.1-1.0); MONO % 9.3 % (3.0-9.0); NEUT # 3.7 10*3/uL (2.3-7.9); NEUT % 47.5 % (47.0-73.0); PLATELET COUNT AUTOMATED 205 10*3/uL (130-400); RED BLOOD COUNT 4.29 10*6/uL (4.10-5.10); WHITE BLOOD COUNT 7.9 10*3/uL (4.8-10.8)
[2017-05-23 05:27] LABS: CREATININE 0.74 mg/dL (0.55-1.02)
[2017-05-23 08:00] VITALS: BP 103/68
== END 2017-05-23 15:05 | disposition home or self-care (01) | DRG 206 ==
LOC: ED 17:16 → EDHOLD 19:00 → ICCU 19:00
PROVIDERS: Emergency Medicine; Family Medicine
DX: M94.0 Chondrocostal junction syndrome [Tietze] (principal); R45.851 Suicidal ideations; F31.60 Bipolar disorder, current episode mixed, unspecified; K21.9 Gastro-esophageal reflux disease without esophagitis; J44.9 Chronic obstructive pulmonary disease, unspecified; F41.9 Anxiety disorder, unspecified; G43.909 Migraine, unspecified, not intractable, without status migrainosus; Z88.6 Allergy status to analgesic agent; Z79.899 Other long term (current) drug therapy; Z81.1 Family history of alcohol abuse and dependence; Z82.49 Family history of ischemic heart disease and other diseases of the circulatory system; F17.210 Nicotine dependence, cigarettes, uncomplicated

== ENCOUNTER 2017-05-31 19:38 | Inpatient (IN) | payer MEDICAID ==
[~2017-05-31] VITALS: Ht 172.7 cm; Wt 65.0 kg
[~2017-05-31 19:38] MED LIST changes: +TRAZODONE50 MG PO
[2017-05-31 19:53] VITALS: BP 106/69
[2017-05-31 20:05] LABS: BASO # 0.1 10*3/uL (0.0-0.1); BASO % 0.7 % (0.0-1.0); EOS # 0.3 10*3/uL (0.0-0.4); EOS % 3.6 % (1.0-4.0); HEMATOCRIT 43.1 % (37.0-47.0); HEMOGLOBIN 14.6 g/dl (12.0-16.0); LYMPH # 3.1 10*3/uL (1.3-4.4); LYMPH % 32.7 % (27.0-41.0); MEAN CELL VOLUME 95.4 fl (81.0-99.0); MEAN CORPUSCULAR HGB 32.3 pg (27.0-31.0); MEAN CORPUSCULAR HGB CONC 33.9 g/dl (33.0-37.0); MEAN PLATELET VOLUME 11.2 fl (9.6-12.3); MONO # 0.7 10*3/uL (0.1-1.0); MONO % 7.4 % (3.0-9.0); NEUT # 5.2 10*3/uL (2.3-7.9); NEUT % 55.4 % (47.0-73.0); PLATELET COUNT AUTOMATED 223 10*3/uL (130-400); RED BLOOD COUNT 4.52 10*6/uL (4.10-5.10); RED CELL DISTRI WIDTH 11.9 % (0-14.5); WHITE BLOOD COUNT 9.4 10*3/uL (4.8-10.8)
[2017-05-31 20:16] LABS: ACT PARTIAL THROMBO TIME 26.3 SECONDS (20.8-31.5)
[2017-05-31 20:22] LABS: ALBUMIN 4.1 gm/dl (3.1-4.5); ALKALINE PHOSPHATASE 79 U/L (45-117); BUN 25 mg/dl (7-24); CHLORIDE 101 mmol/L (98-107); CREATININE 0.88 mg/dL (0.55-1.02); POTASSIUM 4.3 mmol/L (3.5-5.1); SGOT/AST 18 IU/L (3-35); SGPT/ALT 24 U/L (12-78); SODIUM 139 mmol/L (136-145); TOTAL PROTEIN 7.2 gm/dL (6.4-8.2)
[2017-05-31 20:31] LABS: TROPONIN I 0.078 ng/ml (<0.045)
[2017-05-31 21:16] VITALS: BP 111/76
[2017-05-31 21:51] VITALS: BP 112/81
[2017-05-31 22:40] VITALS: BP 124/86
[2017-06-01] VITALS: BP 120/90
[2017-06-01 05:56] LABS: ALBUMIN 3.9 gm/dl (3.1-4.5); BUN 31 mg/dl (7-24); CHLORIDE 104 mmol/L (98-107); CHOLESTEROL 187 mg/dL (<200); CREATININE 0.77 mg/dL (0.55-1.02); PHOSPHOROUS 4.9 mg/dL (2.5-4.9); POTASSIUM 4.2 mmol/L (3.5-5.1); SGOT/AST 19 IU/L (3-35); SGPT/ALT 24 U/L (12-78); SODIUM 138 mmol/L (136-145); TRIGLYCERIDES 116 mg/dl (<150); VLDL CHOLESTEROL 23 mg/dL (6-40)
[2017-06-01 05:57] LABS: ALKALINE PHOSPHATASE 91 U/L (45-117); TOTAL PROTEIN 7.2 gm/dL (6.4-8.2)
[2017-06-01 06:02] LABS: FREE T4 0.94 ng/dl (0.76-1.46); HDL CHOLESTEROL 84 mg/dl (40-60); LDL CHOLESTEROL 80 mg/dL (9-159)
[2017-06-01 06:06] LABS: BASO # 0.1 10*3/uL (0.0-0.1); BASO % 0.8 % (0.0-1.0); EOS # 0.4 10*3/uL (0.0-0.4); EOS % 4.7 % (1.0-4.0); HEMOGLOBIN 14.9 g/dl (12.0-16.0); LYMPH # 3.8 10*3/uL (1.3-4.4); LYMPH % 41.5 % (27.0-41.0); MEAN CELL VOLUME 96.5 fl (81.0-99.0); MEAN CORPUSCULAR HGB 32.7 pg (27.0-31.0); MEAN CORPUSCULAR HGB CONC 33.9 g/dl (33.0-37.0); MEAN PLATELET VOLUME 11.8 fl (9.6-12.3); MONO # 0.7 10*3/uL (0.1-1.0); MONO % 7.5 % (3.0-9.0); NEUT # 4.1 10*3/uL (2.3-7.9); NEUT % 45.4 % (47.0-73.0); PLATELET COUNT AUTOMATED 203 10*3/uL (130-400); RED BLOOD COUNT 4.56 10*6/uL (4.10-5.10); RED CELL DISTRI WIDTH 11.9 % (0-14.5); WHITE BLOOD COUNT 9.1 10*3/uL (4.8-10.8)
[2017-06-01 08:00] VITALS: BP 95/52
[2017-06-01 08:02] LABS: VITAMIN D, 25-HYDROXY 31.3 ng/mL (30-100)
[2017-06-01 16:00] VITALS: BP 102/63
[2017-06-01] MEDS ORDERED: ATORVASTATIN CA80 M1 PO (19:14)
[2017-06-01] MEDS ORDERED: COREG3.125 MG PO (19:14)
[2017-06-01 20:00] VITALS: BP 119/66
[2017-06-02] VITALS: BP 100/62
== END 2017-06-02 14:37 | disposition home or self-care (01) | DRG 206 ==
LOC: ED 19:38 → 4E 21:42 → EDHOLD 21:42 → 4E 21:48
PROVIDERS: Emergency Medicine Emergency Medical Services; Hospitalist
PROC: 4A02XM4 Measurement of Cardiac Total Activity, External Approach (ICD-10-PCS; principal; 2017-06-01)
PROC: 3E073KZ Introduction of Other Diagnostic Substance into Coronary Artery, Percutaneous Approach (ICD-10-PCS; 2017-06-01)
DX: M94.0 Chondrocostal junction syndrome [Tietze] (principal); E83.41 Hypermagnesemia; Z86.74 Personal history of sudden cardiac arrest; F33.9 Major depressive disorder, recurrent, unspecified; F41.9 Anxiety disorder, unspecified; R27.9 Unspecified lack of coordination; K21.9 Gastro-esophageal reflux disease without esophagitis; Z86.73 Personal history of transient ischemic attack (TIA), and cerebral infarction without residual deficits; Z72.0 Tobacco use; Z71.6 Tobacco abuse counseling; Z82.49 Family history of ischemic heart disease and other diseases of the circulatory system; Z88.6 Allergy status to analgesic agent; Z79.899 Other long term (current) drug therapy; Z87.440 Personal history of urinary (tract) infections; Z72.89 Other problems related to lifestyle; Z81.1 Family history of alcohol abuse and dependence; Z84.89 Family history of other specified conditions

== ENCOUNTER 2017-06-15 17:52 | Inpatient (IN) | payer MEDICAID ==
[2017-06-15] VITALS (7 sets, daily range): BP systolic 100–126; BP diastolic 73–79
[~2017-06-15] VITALS: Ht 172.7 cm; Wt 64.9 kg
[~2017-06-15 17:52] MED LIST changes: +ATORVASTATIN CA80 M1 PO; +COREG3.125 MG PO
[2017-06-15 18:10] LABS: BASO % 0.4 % (0.0-1.0); EOS # 0.5 10*3/uL (0.0-0.4); EOS % 6.5 % (1.0-4.0); HEMATOCRIT 39.1 % (37.0-47.0); HEMOGLOBIN 13.2 g/dl (12.0-16.0); LYMPH # 2.4 10*3/uL (1.3-4.4); LYMPH % 33.6 % (27.0-41.0); MEAN CELL VOLUME 95.8 fl (81.0-99.0); MEAN CORPUSCULAR HGB 32.4 pg (27.0-31.0); MEAN CORPUSCULAR HGB CONC 33.8 g/dl (33.0-37.0); MEAN PLATELET VOLUME 10.6 fl (9.6-12.3); MONO # 0.7 10*3/uL (0.1-1.0); MONO % 9.5 % (3.0-9.0); NEUT # 3.6 10*3/uL (2.3-7.9); NEUT % 49.7 % (47.0-73.0); PLATELET COUNT AUTOMATED 203 10*3/uL (130-400); RED BLOOD COUNT 4.08 10*6/uL (4.10-5.10); RED CELL DISTRI WIDTH 12.3 % (0-14.5); WHITE BLOOD COUNT 7.2 10*3/uL (4.8-10.8)
[2017-06-15 18:16] LABS: BILIRUBIN NEGATIVE (NEGATIVE); BLOOD NEGATIVE (NEGATIVE); CLARITY CLEAR (CLEAR); COLOR YELLOW (YELLOW); GLUCOSE NEGATIVE (NEGATIVE); KETONE NEGATIVE (NEGATIVE); LEUKO ESTERASE NEGATIVE (NEGATIVE); NITRITE NEGATIVE (NEGATIVE); PH 7.5 (5.0-9.0); SPECIFIC GRAVITY 1.015 (1.005-1.030); UROBILINOGEN 0.2 E.U./dl (0.2-1.0)
[2017-06-15 18:19] LABS: ACT PARTIAL THROMBO TIME 23.7 SECONDS (20.8-31.5); INTERNATIONAL NORM RATIO 0.9 (2.0-3.5)
[2017-06-15 18:22] LABS: BACTERIA TRACE; EPITHELIAL CELLS 25-30; RBC 0-2 rbc/hpf (0-2); WBC 0-2 wbc/hpf (0-5)
[2017-06-15 18:23] LABS: URINE AMPHETAMINES < 1000 (1000ng/ml); URINE BARBITURATES < 200 (200ng/ml); URINE BENZODIAZEPINES < 200 (200ng/ml); URINE CANNABINOIDS (THC) > 50 (50ng/ml); URINE COCAINE < 300 (300ng/ml); URINE METHADONE < 300 (300ng/ml); URINE OPIATES < 300 (300ng/ml)
[2017-06-15 18:24] LABS: URINE PHENCYCLIDINE < 25 (25ng/ml)
[2017-06-15 18:34] LABS: ALBUMIN 3.6 gm/dl (3.1-4.5); ALKALINE PHOSPHATASE 89 U/L (45-117); BUN 18 mg/dl (7-24); CHLORIDE 105 mmol/L (98-107); POTASSIUM 4.9 mmol/L (3.5-5.1); SGOT/AST 46 IU/L (3-35); SGPT/ALT 55 U/L (12-78); SODIUM 140 mmol/L (136-145); TOTAL PROTEIN 7.2 gm/dL (6.4-8.2)
[2017-06-15 18:35] LABS: TROPONIN I < 0.015 ng/ml (<0.045)
[2017-06-16] VITALS: BP 113/77
[2017-06-16 07:34] LABS: BASO % 0.7 % (0.0-1.0); EOS # 0.6 10*3/uL (0.0-0.4); EOS % 10.3 % (1.0-4.0); HEMATOCRIT 38.6 % (37.0-47.0); HEMOGLOBIN 12.9 g/dl (12.0-16.0); LYMPH % 48.7 % (27.0-41.0); MEAN CELL VOLUME 96.7 fl (81.0-99.0); MEAN CORPUSCULAR HGB 32.3 pg (27.0-31.0); MEAN CORPUSCULAR HGB CONC 33.4 g/dl (33.0-37.0); MEAN PLATELET VOLUME 10.5 fl (9.6-12.3); MONO # 0.6 10*3/uL (0.1-1.0); NEUT # 1.9 10*3/uL (2.3-7.9); NEUT % 30.1 % (47.0-73.0); PLATELET COUNT AUTOMATED 180 10*3/uL (130-400); RED BLOOD COUNT 3.99 10*6/uL (4.10-5.10); RED CELL DISTRI WIDTH 12.3 % (0-14.5); WHITE BLOOD COUNT 6.1 10*3/uL (4.8-10.8)
[2017-06-16 07:52] LABS: ALBUMIN 3.4 gm/dl (3.1-4.5); BUN 15 mg/dl (7-24); CHLORIDE 105 mmol/L (98-107); CHOLESTEROL 177 mg/dL (<200); CREATININE 0.78 mg/dL (0.55-1.02); POTASSIUM 4.4 mmol/L (3.5-5.1); SGOT/AST 33 IU/L (3-35); SGPT/ALT 45 U/L (12-78); SODIUM 139 mmol/L (136-145); TOTAL PROTEIN 6.9 gm/dL (6.4-8.2); TRIGLYCERIDES 55 mg/dl (<150); VLDL CHOLESTEROL 11 mg/dL (6-40)
[2017-06-16 07:59] LABS: ALKALINE PHOSPHATASE 84 U/L (45-117); HDL CHOLESTEROL 101 mg/dl (40-60); LDL CHOLESTEROL 65 mg/dL (9-159)
[2017-06-16 08:00] VITALS: BP 121/80
[2017-06-16 08:01] LABS: INTERNATIONAL NORM RATIO 0.9 (2.0-3.5)
[2017-06-16 08:10] LABS: VITAMIN D, 25-HYDROXY 28.1 ng/mL (30-100)
[2017-06-16 12:00] VITALS: BP 120/78
== END 2017-06-16 16:36 | disposition home or self-care (01) | DRG 313 ==
LOC: ED 17:52 → EDHOLD 18:55 → 5E 18:55 → EDHOLD 19:21 → 5E 21:16
PROVIDERS: Emergency Medicine; Hospitalist
DX: R07.9 Chest pain, unspecified (principal); Z86.74 Personal history of sudden cardiac arrest; F31.60 Bipolar disorder, current episode mixed, unspecified; F12.10 Cannabis abuse, uncomplicated; K21.9 Gastro-esophageal reflux disease without esophagitis; R74.0 Nonspecific elevation of levels of transaminase and lactic acid dehydrogenase [LDH]; F17.210 Nicotine dependence, cigarettes, uncomplicated; E55.9 Vitamin D deficiency, unspecified; F41.9 Anxiety disorder, unspecified; J44.9 Chronic obstructive pulmonary disease, unspecified; G43.909 Migraine, unspecified, not intractable, without status migrainosus; M19.90 Unspecified osteoarthritis, unspecified site; F60.3 Borderline personality disorder; Z88.6 Allergy status to analgesic agent; Z86.73 Personal history of transient ischemic attack (TIA), and cerebral infarction without residual deficits; Z81.1 Family history of alcohol abuse and dependence; Z82.49 Family history of ischemic heart disease and other diseases of the circulatory system; Z79.899 Other long term (current) drug therapy; Z71.6 Tobacco abuse counseling

== ENCOUNTER 2017-06-30 11:48 | Inpatient (IN) | payer MEDICAID ==
[~2017-06-30] VITALS: Ht 170.2 cm; Wt 66.3 kg
[2017-06-30 11:50] VITALS: BP 120/86
[2017-06-30 12:31] LABS: BASO # 0.1 10*3/uL (0.0-0.1); BASO % 0.6 % (0.0-1.0); EOS # 0.3 10*3/uL (0.0-0.4); EOS % 3.8 % (1.0-4.0); HEMATOCRIT 38.8 % (37.0-47.0); HEMOGLOBIN 12.7 g/dl (12.0-16.0); LYMPH # 2.3 10*3/uL (1.3-4.4); LYMPH % 28.8 % (27.0-41.0); MEAN CELL VOLUME 97.2 fl (81.0-99.0); MEAN CORPUSCULAR HGB 31.8 pg (27.0-31.0); MEAN CORPUSCULAR HGB CONC 32.7 g/dl (33.0-37.0); MEAN PLATELET VOLUME 10.1 fl (9.6-12.3); MONO # 0.5 10*3/uL (0.1-1.0); MONO % 6.1 % (3.0-9.0); NEUT # 4.8 10*3/uL (2.3-7.9); NEUT % 60.4 % (47.0-73.0); PLATELET COUNT AUTOMATED 253 10*3/uL (130-400); RED BLOOD COUNT 3.99 10*6/uL (4.10-5.10); RED CELL DISTRI WIDTH 12.4 % (0-14.5); WHITE BLOOD COUNT 7.9 10*3/uL (4.8-10.8)
[2017-06-30 12:41] LABS: ACT PARTIAL THROMBO TIME 26.5 SECONDS (20.8-31.5)
[2017-06-30 12:46] VITALS: BP 118/81
[2017-06-30 12:49] LABS: ALBUMIN 3.4 gm/dl (3.1-4.5); ALKALINE PHOSPHATASE 81 U/L (45-117); BUN 26 mg/dl (7-24); CHLORIDE 106 mmol/L (98-107); CREATININE 0.95 mg/dL (0.55-1.02); LIPASE 1230 U/L (73-393); POTASSIUM 4.8 mmol/L (3.5-5.1); SGOT/AST 34 IU/L (3-35); SGPT/ALT 62 U/L (12-78); SODIUM 140 mmol/L (136-145); TOTAL PROTEIN 6.9 gm/dL (6.4-8.2)
[2017-06-30 12:50] LABS: TROPONIN I < 0.015 ng/ml (<0.045)
[2017-06-30] MEDS ORDERED: LAMICTAL100 MG PO (14:23)
[2017-06-30] MEDS ORDERED: ABILIFY5 MG PO (14:23)
[2017-06-30] MEDS ORDERED: NUED1CAP PO (14:27)
[2017-06-30 15:09] VITALS: BP 132/86
[2017-06-30 16:00] VITALS: BP 135/93
[2017-06-30 20:00] VITALS: BP 103/63
[2017-06-30 23:39] LABS: BILIRUBIN NEGATIVE (NEGATIVE); BLOOD NEGATIVE (NEGATIVE); CLARITY SL CLOUDY (CLEAR); COLOR YELLOW (YELLOW); GLUCOSE NEGATIVE (NEGATIVE); KETONE NEGATIVE (NEGATIVE); LEUKO ESTERASE NEGATIVE (NEGATIVE); NITRITE NEGATIVE (NEGATIVE); PH 5.5 (5.0-9.0); SPECIFIC GRAVITY 1.015 (1.005-1.030); UROBILINOGEN 0.2 E.U./dl (0.2-1.0)
[2017-06-30 23:45] LABS: WBC 0-2 wbc/hpf (0-5); YEAST TRACE
[2017-07-01] VITALS: BP 101/63
[2017-07-01 06:30] LABS: BASO # 0.1 10*3/uL (0.0-0.1); BASO % 0.7 % (0.0-1.0); EOS # 0.4 10*3/uL (0.0-0.4); EOS % 5.1 % (1.0-4.0); HEMATOCRIT 36.2 % (37.0-47.0); LYMPH # 3.3 10*3/uL (1.3-4.4); MEAN CORPUSCULAR HGB 31.8 pg (27.0-31.0); MEAN CORPUSCULAR HGB CONC 33.1 g/dl (33.0-37.0); MEAN PLATELET VOLUME 10.6 fl (9.6-12.3); MONO # 0.5 10*3/uL (0.1-1.0); MONO % 7.7 % (3.0-9.0); NEUT # 2.8 10*3/uL (2.3-7.9); NEUT % 39.2 % (47.0-73.0); PLATELET COUNT AUTOMATED 234 10*3/uL (130-400); RED BLOOD COUNT 3.77 10*6/uL (4.10-5.10); RED CELL DISTRI WIDTH 12.5 % (0-14.5)
[2017-07-01 06:46] LABS: BUN 22 mg/dl (7-24); CHLORIDE 106 mmol/L (98-107); POTASSIUM 4.1 mmol/L (3.5-5.1); SODIUM 141 mmol/L (136-145)
[2017-07-01 06:58] LABS: CREATININE 0.72 mg/dL (0.55-1.02); PHOSPHOROUS 4.5 mg/dL (2.5-4.9)
[2017-07-01 08:00] VITALS: BP 159/90
[2017-07-01 12:00] VITALS: BP 117/81
[2017-07-01 16:00] VITALS: BP 105/59
[2017-07-01] MEDS ORDERED: NEURONTIN300 MG PO (16:44)
== END 2017-07-01 18:03 | disposition home or self-care (01) | DRG 438 ==
LOC: ED 11:48 → EDHOLD 13:04 → 5E 13:33
PROVIDERS: Emergency Medicine; Internal Medicine
DX: K85.90 Acute pancreatitis without necrosis or infection, unspecified (principal); J18.9 Pneumonia, unspecified organism; G93.1 Anoxic brain damage, not elsewhere classified; R45.851 Suicidal ideations; F31.60 Bipolar disorder, current episode mixed, unspecified; R07.89 Other chest pain; R79.82 Elevated C-reactive protein (CRP); R30.0 Dysuria; R74.8 Abnormal levels of other serum enzymes; F99 Mental disorder, not otherwise specified; K21.9 Gastro-esophageal reflux disease without esophagitis; Z86.73 Personal history of transient ischemic attack (TIA), and cerebral infarction without residual deficits; Z82.49 Family history of ischemic heart disease and other diseases of the circulatory system; Z71.6 Tobacco abuse counseling; Z88.6 Allergy status to analgesic agent; Z79.899 Other long term (current) drug therapy; Z72.89 Other problems related to lifestyle; Z72.0 Tobacco use

== ENCOUNTER 2017-11-11 01:21 | Emergency (ER) | payer MEDICAID ==
[~2017-11-11] VITALS: Wt 72.6 kg
[~2017-11-11 01:21] MED LIST changes: +ABILIFY5 MG PO; +NUED1CAP PO
[2017-11-11 02:15] LABS: BILIRUBIN NEGATIVE (NEGATIVE); CLARITY CLOUDY (CLEAR); COLOR YELLOW (YELLOW); GLUCOSE NEGATIVE (NEGATIVE); KETONE NEGATIVE (NEGATIVE); SPECIFIC GRAVITY 1.025 (1.005-1.030)
[2017-11-11 02:16] LABS: BACTERIA TRACE; BLOOD TRACE-INTACT (NEGATIVE); EPITHELIAL CELLS TNTC; LEUKO ESTERASE NEGATIVE (NEGATIVE); NITRITE NEGATIVE (NEGATIVE); UROBILINOGEN 0.2 E.U./dl (0.2-1.0)
[2017-11-11 02:51] LABS: BASO # 0.1 10*3/uL (0.0-0.1); BASO % 0.6 % (0.0-1.0); EOS # 0.5 10*3/uL (0.0-0.4); EOS % 5.2 % (1.0-4.0); HEMATOCRIT 41.3 % (37.0-47.0); HEMOGLOBIN 13.7 g/dl (12.0-16.0); LYMPH # 3.3 10*3/uL (1.3-4.4); LYMPH % 35.4 % (27.0-41.0); MEAN CELL VOLUME 94.9 fl (81.0-99.0); MEAN CORPUSCULAR HGB 31.5 pg (27.0-31.0); MEAN CORPUSCULAR HGB CONC 33.2 g/dl (33.0-37.0); MEAN PLATELET VOLUME 10.4 fl (9.6-12.3); MONO # 0.7 10*3/uL (0.1-1.0); NEUT # 4.8 10*3/uL (2.3-7.9); NEUT % 51.6 % (47.0-73.0); PLATELET COUNT AUTOMATED 226 10*3/uL (130-400); RED BLOOD COUNT 4.35 10*6/uL (4.10-5.10); RED CELL DISTRI WIDTH 12.6 % (0-14.5); WHITE BLOOD COUNT 9.3 10*3/uL (4.8-10.8)
[2017-11-11 03:02] LABS: BUN 18 mg/dl (7-24); CHLORIDE 107 mmol/L (98-107); CREATININE 0.95 mg/dL (0.55-1.02); POTASSIUM 3.8 mmol/L (3.5-5.1); SODIUM 143 mmol/L (136-145)
[2017-11-11 03:03] LABS: ACETAMINOPHEN (TYLENOL) < 2.0 ug/ml (10-30); ETHYL ALCOHOL < 3.0 mg/dl (<3)
[2017-11-11 08:22] LABS: URINE AMPHETAMINES < 1000 (1000ng/ml); URINE BARBITURATES < 200 (200ng/ml); URINE BENZODIAZEPINES < 200 (200ng/ml); URINE CANNABINOIDS (THC) > 50 (50ng/ml); URINE COCAINE > 300 (300ng/ml); URINE METHADONE < 300 (300ng/ml); URINE OPIATES < 300 (300ng/ml)
[2017-11-11 08:23] LABS: URINE PHENCYCLIDINE < 25 (25ng/ml)
[2017-11-11 08:28] VITALS: BP 138/80
== END 2017-11-11 11:25 | disposition home or self-care (01) ==
LOC: ED 01:21
PROVIDERS: Emergency Medicine
DX: Z63.9 Problem related to primary support group, unspecified (principal); G89.29 Other chronic pain; F17.200 Nicotine dependence, unspecified, uncomplicated; K21.9 Gastro-esophageal reflux disease without esophagitis; F32.9 Major depressive disorder, single episode, unspecified; Z86.73 Personal history of transient ischemic attack (TIA), and cerebral infarction without residual deficits; Z88.6 Allergy status to analgesic agent; Z79.899 Other long term (current) drug therapy

== ENCOUNTER → 2018-02-01 | Outpatient (CLI) | payer MEDICAID | END | disposition home or self-care (01) | LOC: MAMMO 07:56 | DX: Z12.31 Encounter for screening mammogram for malignant neoplasm of breast (principal); N63.21 Unspecified lump in the left breast, upper outer quadrant ==

== ENCOUNTER → 2018-03-13 | Outpatient (CLI) | payer MEDICAID ==
[2018-03-13 07:44] LABS: BASO # 0.1 10*3/uL (0.0-0.1); BASO % 0.7 % (0.0-1.0); EOS # 0.4 10*3/uL (0.0-0.4); EOS % 4.2 % (1.0-4.0); HEMATOCRIT 35.9 % (37.0-47.0); LYMPH # 3.4 10*3/uL (1.3-4.4); LYMPH % 32.1 % (27.0-41.0); MEAN CELL VOLUME 97.3 fl (81.0-99.0); MEAN CORPUSCULAR HGB 32.5 pg (27.0-31.0); MEAN CORPUSCULAR HGB CONC 33.4 g/dl (33.0-37.0); MEAN PLATELET VOLUME 10.4 fl (9.6-12.3); MONO # 0.8 10*3/uL (0.1-1.0); NEUT # 5.8 10*3/uL (2.3-7.9); NEUT % 54.6 % (47.0-73.0); PLATELET COUNT AUTOMATED 258 10*3/uL (130-400); RED BLOOD COUNT 3.69 10*6/uL (4.10-5.10); RED CELL DISTRI WIDTH 14.1 % (0-14.5); WHITE BLOOD COUNT 10.5 10*3/uL (4.8-10.8)
[2018-03-13 07:59] LABS: ALBUMIN 3.3 gm/dl (3.1-4.5); ALKALINE PHOSPHATASE 54 U/L (45-117); BUN 10 mg/dl (7-24); CHLORIDE 104 mmol/L (98-107); CREATININE 0.98 mg/dL (0.55-1.02); POTASSIUM 3.7 mmol/L (3.5-5.1); SGOT/AST 13 IU/L (3-35); SGPT/ALT 17 U/L (12-78); SODIUM 141 mmol/L (136-145); TOTAL PROTEIN 7.2 gm/dL (6.4-8.2)
== END | disposition home or self-care (01) ==
LOC: CT 03-08 11:00 → LAB 07:28
PROVIDERS: Urology
DX: K44.9 Diaphragmatic hernia without obstruction or gangrene (principal); R31.9 Hematuria, unspecified

== ENCOUNTER 2018-03-14 09:58 | Emergency (ER) | payer MEDICAID ==
[~2018-03-14] VITALS: Wt 68.0 kg
[2018-03-14 10:00] VITALS: BP 129/92
[2018-03-14 10:29] LABS: BILIRUBIN NEGATIVE (NEGATIVE); BLOOD NEGATIVE (NEGATIVE); CLARITY CLOUDY (CLEAR); COLOR YELLOW (YELLOW); GLUCOSE NEGATIVE (NEGATIVE); KETONE NEGATIVE (NEGATIVE); LEUKO ESTERASE NEGATIVE (NEGATIVE); NITRITE NEGATIVE (NEGATIVE); UROBILINOGEN 0.2 E.U./dl (0.2-1.0)
[2018-03-14 10:37] LABS: BASO # 0.1 10*3/uL (0.0-0.1); BASO % 0.5 % (0.0-1.0); EOS # 0.3 10*3/uL (0.0-0.4); EOS % 2.8 % (1.0-4.0); HEMATOCRIT 33.7 % (37.0-47.0); HEMOGLOBIN 11.2 g/dl (12.0-16.0); LYMPH # 1.8 10*3/uL (1.3-4.4); LYMPH % 18.1 % (27.0-41.0); MEAN CELL VOLUME 97.7 fl (81.0-99.0); MEAN CORPUSCULAR HGB 32.5 pg (27.0-31.0); MEAN CORPUSCULAR HGB CONC 33.2 g/dl (33.0-37.0); MEAN PLATELET VOLUME 10.1 fl (9.6-12.3); MONO # 0.7 10*3/uL (0.1-1.0); MONO % 6.8 % (3.0-9.0); NEUT # 7.2 10*3/uL (2.3-7.9); NEUT % 71.5 % (47.0-73.0); PLATELET COUNT AUTOMATED 236 10*3/uL (130-400); RED BLOOD COUNT 3.45 10*6/uL (4.10-5.10); RED CELL DISTRI WIDTH 14.4 % (0-14.5)
[2018-03-14 10:51] LABS: ACT PARTIAL THROMBO TIME 22.5 SECONDS (19.5-32.1); INTERNATIONAL NORM RATIO 0.9 (2.0-3.5)
[2018-03-14 10:53] LABS: ALBUMIN 3.3 gm/dl (3.1-4.5); ALKALINE PHOSPHATASE 54 U/L (45-117); BUN 9 mg/dl (7-24); CHLORIDE 108 mmol/L (98-107); CREATININE 0.94 mg/dL (0.55-1.02); ETHYL ALCOHOL < 3.0 mg/dl (<3); POTASSIUM 4.4 mmol/L (3.5-5.1); SGOT/AST 13 IU/L (3-35); SGPT/ALT 15 U/L (12-78); SODIUM 142 mmol/L (136-145); TOTAL PROTEIN 6.6 gm/dL (6.4-8.2)
[2018-03-14 11:00] LABS: BACTERIA 2+; CALCIUM OXALATE CRYSTALS TRACE; EPITHELIAL CELLS 15-20
[2018-03-14 11:01] LABS: THYROID STIM HORMONE (HS) 0.945 uIU/ml (0.358-4.75)
[2018-03-14 11:18] LABS: URINE AMPHETAMINES < 1000 (1000ng/ml); URINE BARBITURATES < 200 (200ng/ml); URINE BENZODIAZEPINES < 200 (200ng/ml); URINE CANNABINOIDS (THC) > 50 (50ng/ml); URINE COCAINE < 300 (300ng/ml); URINE METHADONE < 300 (300ng/ml); URINE OPIATES < 300 (300ng/ml); URINE PHENCYCLIDINE < 25 (25ng/ml)
== END 2018-03-14 12:12 | disposition home or self-care (01) ==
LOC: ED 09:58
PROVIDERS: Emergency Medicine
DX: R42 Dizziness and giddiness (principal); R07.9 Chest pain, unspecified; K21.9 Gastro-esophageal reflux disease without esophagitis; G62.9 Polyneuropathy, unspecified; F17.210 Nicotine dependence, cigarettes, uncomplicated; Z88.8 Allergy status to other drugs, medicaments and biological substances; Z79.899 Other long term (current) drug therapy; W01.198A Fall on same level from slipping, tripping and stumbling with subsequent striking against other object, initial encounter; Y93.89 Activity, other specified; Y92.009 Unspecified place in unspecified non-institutional (private) residence as the place of occurrence of the external cause; Y99.8 Other external cause status

== ENCOUNTER 2018-10-13 10:56 | Emergency (ER) | payer MEDICAID ==
[~2018-10-13] VITALS: Ht 170.1 cm; Wt 56.7 kg
[2018-10-13 10:56] VITALS: BP 136/70
[~2018-10-13 10:56] MED LIST changes: +ALL DAY ALLERGY10 M2 PO; +ATENOLOL25 MG PO; +Carafate1 GM PO; +FERROUS SULFAT325 MG PO; +LAMOTRIGINE100 MG PO; +LATU80TA PO; +MIRTAZAPINE15 M2 PO; +MIRTAZAPINE30 M2 PO; +NATURE'S BLEND F1 MG PO; +NEUDEXT PO; +NICODERM CQ1 EAC2 TD; +NITROFURANTOIN100 M3 PO; +NORVASC10 MG PO; +PEPCID20 MG PO; +QUETIAPINE FUM100 M3 PO; +RANITIDINE HCL150 M1 PO; +SEROQUEL400 M1 PO
[2018-10-24] MEDS ORDERED: OXYBUTYNIN CHLOR5 MG PO (08:22)
[2018-10-24] MEDS ORDERED: MIRTAZAPINE15 M2 PO (13:39)
[2018-10-24] MEDS ORDERED: GABAPENTIN100 M2 PO (13:39)
[2018-10-24] MEDS ORDERED: RIVASTIGMINE1 EAC1 T (13:39)
[2018-10-24] MEDS ORDERED: LAMOTRIGINE100 MG PO (13:39)
[2018-10-24] MEDS ORDERED: QUETIAPINE FUM100 M3 PO (13:39)
== END 2018-10-13 14:07 | disposition home or self-care (01) ==
LOC: ED 10:56
DX: F31.9 Bipolar disorder, unspecified (principal); K21.9 Gastro-esophageal reflux disease without esophagitis; I10 Essential (primary) hypertension; E78.5 Hyperlipidemia, unspecified; G62.9 Polyneuropathy, unspecified; F14.90 Cocaine use, unspecified, uncomplicated; F12.90 Cannabis use, unspecified, uncomplicated; F17.200 Nicotine dependence, unspecified, uncomplicated; Z88.8 Allergy status to other drugs, medicaments and biological substances; Z88.6 Allergy status to analgesic agent; Z79.899 Other long term (current) drug therapy